=== PATIENT | female | born 2005 | race Caucasian/White ===

== ENCOUNTER → 2025-03-02 | Outpatient (CLI) | payer BC, SELFPAY ==
[2025-03-02 14:05] LABS: Syphilis Nonreactive (Nonreactive)
[2025-03-02 14:44] LABS: HIV (1&2) Antibody Rapid Non-Reactive
[2025-03-02 14:48] LABS: Hepatitis B Core Antibody IgM Non Reactive (Non React); Hepatitis B Surface Antigen Non Reactive (Non React)
[2025-03-02 16:03] LABS: Chlamydia trachomatis PCR Negative (Not Detect); Neisseria Gonorrhoeae DNA PCR Negative (Not Detect); Trichomonas Negative (Negative)
[2025-03-08 07:25] LABS: Hepatitis B Core Ab,Total* NONREACTIVE
== END | disposition home or self-care (01) ==
LOC: COPL 12:45
PROVIDERS: PCP Family Medicine; Referring Provider Registered Nurse; Visit Provider Registered Nurse
DX: Z11.3 Encounter for screening for infections with a predominantly sexual mode of transmission (principal)
CPT/HCPCS: 36415; 86703; 86704; 86705; 86780; 87340; 87491; 87591; 87661